=== PATIENT | female | born 1975 | race Caucasian/White ===

== ENCOUNTER 2016-06-28 10:31 | Emergency (ER) | payer SELFPAY ==
[~2016-06-28 10:31] MED LIST: /MOXI40TA; /PANT40TA; ACET50TA PO; ACET65TA; ALBU17IN INH; ALBU17IN2; ANUS2.5C2 TOP; ASPI325T; COMBVENT; DEPA250C; DEPA250T3; DIAZ10TA2; DIAZ5TAB; DIAZEPAM; DOCU10ELUD PO; DUONSOL; IBUP600T26 PO; KLON1TAB; MOM30SS PO; NICO21DI4; PERCOCET 5/325; PRED10TA2; PRED20TA; PROZ10CA; ROZEREM; SERO200T; SERO400T; SOMA; SOMA350T; SUDA30TA PO; TOPI100T; TOPI25TA2; TREXIMET; VENTAER; VICO5TAB
[2016-06-28] MEDS ORDERED: diphenhydrAMINE INJ 50MG/ML VIAL (J1200) As Ordered ONE (12:11)
[2016-06-28] MEDS ORDERED: METOCLOPRAMIDE INJ 10MG/2ML VIAL (J2765) As Ordered ONE (12:11)
[2016-06-28 12:26] LABS: BASO # 0.1 K/mm3 (0.0-0.2); BASO % 0.9 % (0.0-1.0); EOS # 0.4 K/mm3 (0.0-0.50); LARGE UNSTAINED CELL # 0.2 K/mm3 (0.0-0.4); LARGE UNSTAINED CELL % 1.4 % (0.0-4.0); LYMPH # 1.7 K/mm3 (1.5-4.5); LYMPH % 13.7 % (24.0-44.0); MEAN CORPUSCULAR HEMOGLOBIN 29.6 pg (27.0-33.0); MEAN CORPUSCULAR HGB CONC 32.3 g/dl (32.0-36.5); MEAN CORPUSCULAR VOLUME 91.6 fl (80.0-96.0); MONO # 0.6 K/mm3 (0.0-0.8); MONO % 4.9 % (0.0-5.0); NEUTROPHILS # 8.7 K/mm3 (1.8-7.7); NEUTROPHILS % 76.1 % (36.0-66.0); PLATELET COUNT, AUTOMATED 450 k/mm3 (150-450); RED CELL DISTRIBUTION WIDTH 13.6 % (11.5-14.5); WHITE BLOOD COUNT 11.4 K/mm3 (4.0-10.0)
[2016-06-28 13:12] LABS: ALBUMIN 3.6 GM/DL (3.2-5.2); ALBUMIN/GLOBULIN RATIO 0.97 (1.00-1.93); ALKALINE PHOSPHATASE 124 U/L (45-117); ALT/SGPT 26 U/L (12-78); AMYLASE 39 U/L (25-115); ANION GAP 9 MEQ/L (8-16); AST/SGOT 3 U/L (15-37); BILIRUBIN,DIRECT 0.1 MG/DL (0.0-0.2); BILIRUBIN,TOTAL 0.5 MG/DL (0.2-1.0); BLOOD UREA NITROGEN 6 MG/DL (7-18); CALCIUM LEVEL 9.1 MG/DL (8.5-10.1); CARBON DIOXIDE LEVEL 26 MEQ/L (21-32); CHLORIDE LEVEL 104 MEQ/L (98-107); CREATININE FOR GFR 0.62 MG/DL (0.55-1.02); GLOMERULAR FILTRATION RATE > 60.0 (>58); GLUCOSE, FASTING 115 MG/DL (70-105); SODIUM LEVEL 139 MEQ/L (136-145); TOTAL PROTEIN 7.3 GM/DL (6.4-8.2)
[2016-06-28] MEDS ORDERED: KETOROLAC 30 MG/ML VIAL (J1885) As Ordered ONE (13:12)
[2016-06-28] MEDS ORDERED: ISOVUE-370 76% 100ML VIAL (Q9967) As Ordered ONE (13:15)
--- NOTE | 2016-06-28 14:20 | REP ---
CT ABDOMEN AND PELVIS WITH IV CONTRAST ONLY: 06/28/2016 INDICATION: Appendicitis. COMPARISON:none The lung bases are clear bilaterally. 4 mm cyst present within the lateral aspect right dome of liver. The spleen, pancreas are normal. There has been a prior cholecystectomy. There is no significant biliary dilatation. The adrenal glands are normal. The kidneys are without hydronephrosis bilaterally. There is a small area of fatty infiltration within the medial lower pole right kidney of 6 mm diameter consistent with angiomyolipoma. The stomach is normal. Small bowel is without obstruction. The abdominal aorta is of normal course and caliber. There are no pathologically enlarged retroperitoneal nodes. The bladder is moderately distended with urine. The uterus and adnexa are within normal limits. The bladder is unremarkable. Mild mural thickening is seen within the left colon is most compatible with underdistention. There is moderate stool within the right colon and moderate air in the transverse colon. Although the appendix is not specifically visualized, no inflammatory changes are identified in the right lower quadrant. There is no free air or ascites. IMPRESSION: 1. Although the appendix is not specifically visualized, there are no visualized inflammatory changes within the right lower quadrant. If symptoms persist, may consider followup CT with IV and oral contrast. 2. Mural thickening seen throughout the left colon which can be secondary to underdistention/spasm or mild localized colitis. No free air or ascites. MTDD
--- NOTE | 2016-06-28 14:50 | EDDOCDS ---
Physician Documentation [facility] Name: Lovely Witt Age: 41 yrs Sex: Female : 1975 Arrival Date: 06/28/2016 Time: 10:31 Bed TR7 Private MD: Odell Sutton MD Disposition: 06/28/16 14:16 Discharged to Home/Self Care. Impression: Abdominal tenderness. - Condition is Stable. - Discharge Instructions: Abdominal Pain, Adult, Muscle Strain, [id number]. - Prescriptions for Robaxin- 750 750 mg Oral Tablet - take 1 tablet by ORAL route every 6 hours As needed; 40 tablet. etodolac 200 mg Oral Capsule - take 1 capsule by ORAL route 3 times per day; 30 capsule. - Medication Reconciliation, Local Pharmacy Hours form. - Follow up: Odell Sutton; When: Call to arrange an appointment; Reason: Further diagnostic work-up, Recheck today's complaints, Continuance of care. - Problem is new. - Symptoms have improved. Historical: - Allergies: NSAIDS (Upset stomach); - Home Meds: 1. multivitamin Oral cap daily - PMHx: none; - PSHx: ; Cholecystectomy; - Social history: Smoking status: Patient uses tobacco products, heavy tobacco smoker. No barriers to communication noted, The patient speaks fluent Uzbek, Speaks appropriately for age. - Family history: Not pertinent. - : The pt / caregiver states he / she is not on anticoagulants. Home medication list is obtained from the patient. - Exposure Risk Screening:: None identified. Vital Signs: 06/28 10:33 BP 162 / 95; Pulse 98; Resp 16; Temp 98.0(O); Pulse Ox 99% on R/A; Weight 54.43 kg / sew 120 lbs; Height 5 ft. 3 in. (160.02 cm); Pain 10/10; 13:52 BP 167 / 97 LA Supine (auto/reg); Pulse 87; Resp 22; Temp 96.5; Pulse Ox 96% ; Pain bnb 10/10; 10:33 Body Mass Index 21.26 (54.43 kg, 160.02 cm) sew MDM: 11:44 NS 0.9% 1000 ml IV at bolus once ordered. btw 11:44 IV Saline Lock ordered. btw 11:44 Undress patient appropriately for examination ordered. btw 11:44 Metoclopramide 20 mg IV at 80 mg/hr once over 15 mins ordered. btw 11:44 diphenhydrAMINE 50 mg IVP once ordered. btw 11:45 UCG by Nursing ordered. btw 11:45 Amylase Ordered. EDMS 11:45 Basic Metabolic Profile Ordered. EDMS 11:45 CBC with Diff Ordered. EDMS 11:45 Lipase Ordered. EDMS 11:45 Liver Profile Ordered. EDMS 11:45 Urinalysis Ordered. EDMS 11:45 Urine Culture Ordered. EDMS 11:45 CT ABD & PELVIS: IV Contrast Only Ordered. EDMS 11:46 NOTHING BY MOUTH+DIET ordered. EDMS 12:37 Financial registration complete. lg 12:37 [place] [place] [facility] [place] Agreement was scanned into [employer] and attached to record. lg 13:05 CBC with Diff Reviewed. btw 13:05 Urinalysis Reviewed. btw 13:07 ketorolac 30 mg IVP once ordered. btw 13:16 Basic Metabolic Profile Reviewed. btw 13:16 Liver Profile Reviewed. btw 13:16 Amylase Reviewed. btw 13:16 Lipase Reviewed. btw Point of Care Testing: Urine : 11:55 hCG Reading: Negative; Control Reading: Positive; ck1 Ranges: Administered Medications: 12:21 Drug: Metoclopramide 20 mg [metoclopramide 5 mg/mL injection solution] Route: IV; Rate: mk4 80 mg/hr; Infused Over: 15 mins; Site: right antecubital; 12:43 Follow up: IV Status: Completed infusion jjr 12:21 Drug: diphenhydrAMINE 50 mg [diphenhydramine 50 mg/mL injection solution (1 mL)] Route: mk4 IVP; Site: right antecubital; 12:22 Drug: NS 0.9% 1000 ml Route: IV; Rate: bolus; Site: right antecubital; mk4 13:16 Drug: ketorolac 30 mg [ketorolac 30 mg/mL (1 mL) injection solution (1 mL)] Route: IVP; jjr Site: right antecubital; Signatures: Dispatcher [employer] EDMS [place], Matt Reg lg Rigoberto Lyles PA PA btw Sherie Parham RN RN hs1 Marquita Hays RN RN mk4 Judy Jauregui RN jjr The chart was reviewed and I authenticate all verbal orders and agree with the evaluation and treatment provided.Attachments: 12:37 REPLACED BY [facility] Payment Agreement lg MTDD
--- NOTE | 2016-06-28 14:50 | EDDOCDS ---
Nurse's Notes [facility] Name: Lovely Witt Age: 41 yrs Sex: Female : 1975 Arrival Date: 06/28/2016 Time: 10:31 Bed TR7 Private MD: Odell Sutton MD Diagnosis: Abdominal tenderness Presentation: 06/28 10:41 Presenting complaint: Patient states: pain started underneath last rib on right side. hs1 Patient states now cannot lay down and pain is increased on back. Pt reports pain began 5 days ago. Risk factors: the patient reports no vaginal bleeding. Adult Sepsis Screening: The patient does not have new or worsening altered mentation. Patient's respiratory rate is less than 22. Systolic blood pressure is greater than 100. Patient has a qSOFA score of 0- Negative Sepsis Screen. Suicide/Homicide risk assessment- the patient denies having any suicidal and/or homicidal ideations and does not present with any other emotional, behavioral or mental health complaints. Status: Patient is not a food service coordinator or dependent. Transition of care: patient was not received from another setting of care. 10:41 Acuity: VIGNESH Level 4 hs1 10:41 Method Of Arrival: Walkin/Carried/Asstd hs1 11:52 Acuity level changed due to complexity of care. mlb1 11:52 Acuity: VIGNESH Level 3 mlb1 Triage Assessment: 10:43 General: Appears uncomfortable, Behavior is appropriate for age, cooperative. Pain: hs1 Location: right lateral posterior chest and right lateral anterior chest Pain currently is 8 out of 10 on a pain scale. Pt Declines HIV testing. Respiratory: Reports cough that is pain with cough. GI: Denies nausea. Historical: - Allergies: NSAIDS (Upset stomach); - Home Meds: 1. multivitamin Oral cap daily - PMHx: none; - PSHx: ; Cholecystectomy; - Social history: Smoking status: Patient uses tobacco products, heavy tobacco smoker. No barriers to communication noted, The patient speaks fluent Turkish, Speaks appropriately for age. - Family history: Not pertinent. - : The pt / caregiver states he / she is not on anticoagulants. Home medication list is obtained from the patient. - Exposure Risk Screening:: None identified. Screenin:55 Screening information is obtained from the patient. Fall risk: No risks identified. jjr Assistance ADL's: requires no assistance with activities of daily living. Abuse/DV Screen: The patient / caregiver reports he/she is: not in a situation that causes fear, pain or injury. Nutritional screening: No deficits noted. Advance Directives: There is no active DNR order. home support is adequate. Assessment: 12:00 General: Appears distressed, Behavior is agitated, rude. General: pt very agitated mk4 states " you arent going to stick anything in me without something for pain" i explained to her that she was seen by a medical provider and a plan was made for her care and that i would be giving someone something for pain through her IV , pt kicking and thrashing and screaming during IV start screaming " you've got one shot" . Neurological: No deficits noted. GI: Abdomen is non- distended Abd is tender to palpation X 4 quads. 12:43 General: Appears in no apparent distress, continues to report 8/10 pain to RUQ. jjr 13:54 General: Appears in no apparent distress, hacking cough, pt reports RUQ pain aggravated jjr with movement and cough. 14:21 General: Appears to be sleeping. mk4 14:45 General: Appears to be sleeping. pt sound asleep , needed physical shaking to awake for mk4 discharge instructions , mother at bedside and aware of instructions as well. Vital Signs: 10:33 BP 162 / 95; Pulse 98; Resp 16; Temp 98.0(O); Pulse Ox 99% on R/A; Weight 54.43 kg; sew Height 5 ft. 3 in. (160.02 cm); Pain 10/10; 13:52 BP 167 / 97 LA Supine (auto/reg); Pulse 87; Resp 22; Temp 96.5; Pulse Ox 96% ; Pain bnb 10/10; 10:33 Body Mass Index 21.26 (54.43 kg, 160.02 cm) [facility] [place] 10:33 Log In Time: June 28, 2016 at 10:32. [facility] [place]: 10:32 Patient visited by Jill Sweeney. sew 10:32 Patient moved to Waiting sew 10:33 Odell Sutton is Private Physician. sew 10:34 Patient visited by Jill Sweeney. sew 10:34 Patient moved to Pre RCE sew 10:42 Triage Initiated hs1 11:18 Patient moved to Triage 2 mlb1 11:18 Patient moved to Pre RCE mlb1 11:21 Patient moved to Triage 2 ead 11:22 Rigoberto Lyles PA is PHCP. btw 11:22 Jill Mcarthur MD is Attending Physician. btw 11:22 Patient visited by Rigoberto Lyles PA. btw 11:22 Patient moved to Pre RCE ead 11:28 Patient moved to Triage 1 jrd 11:51 Patient moved to I1 / M1 mlb1 11:53 Patient visited by Marquita Hays RN. mk4 11:55 Urinalysis Sent. ck1 11:55 Urine Culture Sent. ck1 12:37 [facility] [place] Payment Agreement was scanned into [employer] and attached to record. lg 12:44 Patient visited by Judy Jauregui RN. jjr 13:16 Patient visited by Marquita Hays RN. mk4 13:53 Patient visited by Fadumo Desouza PCA. bnb 13:56 Patient visited by Judy Jauregui RN. jjr 14:16 Odell Sutton is Referral Physician. btw 14:20 Patient visited by Fadumo Desouza PCA. bnb 14:33 CT ABD & PELVIS: IV Contrast Only Returned. EDMS 14:38 Patient moved to TR7 mk4 14:45 The patient / caregiver is instructed regarding the plan of care and ED course. mk4 14:45 Discontinued IV lock bleeding controlled, pressure dressing applied. mk4 14:48 Pt came to desk with blood running down the arm from IV site. IV site cleaned and fresh rs6 bandage placed. 14:48 No procedures done that require assistance. mk4 14:49 Patient visited by Ann Marie Strange PCA. rs6 Administered Medications: 12:21 Drug: Metoclopramide 20 mg [metoclopramide 5 mg/mL injection solution] Route: IV; Rate: mk4 80 mg/hr; Infused Over: 15 mins; Site: right antecubital; 12:43 Follow up: IV Status: Completed infusion jjr 12:21 Drug: diphenhydrAMINE 50 mg [diphenhydramine 50 mg/mL injection solution (1 mL)] Route: mk4 IVP; Site: right antecubital; 12:22 Drug: NS 0.9% 1000 ml Route: IV; Rate: bolus; Site: right antecubital; mk4 13:16 Drug: ketorolac 30 mg [ketorolac 30 mg/mL (1 mL) injection solution (1 mL)] Route: IVP; jjr Site: right antecubital; Point of Care Testing: Urine : 11:55 hCG Reading: Negative; Control Reading: Positive; ck1 Ranges: Order Results: Lab Order: Amylase; SPEC'M 06/28/16 12:19 Test: AMYLASE; Value: 39; Range: 25-115; Units: U/L; Status: F Lab Order: Basic Metabolic Profile; SPEC'M 06/28/16 12:19 Test: GLUCOSE, FASTING; Value: 115; Range: 70-105; Abnormal: Above high normal; Units: MG/DL; Status: F Test: BLOOD UREA NITROGEN; Value: 6; Range: 7-18; Abnormal: Below low normal; Units: MG/DL; Status: F Test: CREATININE FOR GFR; Value: 0.62; Range: 0.55-1.02; Units: MG/DL; Status: F Test: GLOMERULAR FILTRATION RATE; Value: > 60.0; Range: >58; Status: F Test: SODIUM LEVEL; Value: 139; Range: 136-145; Units: MEQ/L; Status: F Test: POTASSIUM SERUM; Value: 4.0; Range: 3.5-5.1; Units: MEQ/L; Status: F Test: CHLORIDE LEVEL; Value: 104; Range: 98-107; Units: MEQ/L; Status: F Test: CARBON DIOXIDE LEVEL; Value: 26; Range: 21-32; Units: MEQ/L; Status: F Test: ANION GAP; Value: 9; Range: 8-16; Units: MEQ/L; Status: F Test: CALCIUM LEVEL; Value: 9.1; Range: 8.5-10.1; Units: MG/DL; Status: F Test Note: ; Units are mL/min/1.73 m2 Chronic Kidney Disease Staging per NKF: Stage I & II GFR >=60 Normal to Mildly Decreased Stage III GFR 30-59 Moderately Decreased Stage IV GFR 15-29 Severely Decreased Stage V GFR <15 Very Little GFR Left ESRD GFR <15 on DORMITORY SUPERVISOR Lab Order: CBC with Diff; SPEC'M 06/28/16 12:19 Test: WHITE BLOOD COUNT; Value: 11.4; Range: 4.0-10.0; Abnormal: Above high normal; Units: K/mm3; Status: F Test: RED BLOOD COUNT; Value: 4.68; Range: 4.00-5.40; Units: M/mm3; Status: F Test: HEMOGLOBIN; Value: 13.9; Range: 12.0-16.0; Units: g/dl; Status: F Test: HEMATOCRIT; Value: 42.9; Range: 36.0-47.0; Units: %; Status: F Test: MEAN CORPUSCULAR VOLUME; Value: 91.6; Range: 80.0-96.0; Units: fl; Status: F Test: MEAN CORPUSCULAR HEMOGLOBIN; Value: 29.6; Range: 27.0-33.0; Units: pg; Status: F Test: MEAN CORPUSCULAR HGB CONC; Value: 32.3; Range: 32.0-36.5; Units: g/dl; Status: F Test: RED CELL DISTRIBUTION WIDTH; Value: 13.6; Range: 11.5-14.5; Units: %; Status: F Test: PLATELET COUNT, AUTOMATED; Value: 450; Range: 150-450; Units: k/mm3; Status: F Test: NEUTROPHILS %; Value: 76.1; Range: 36.0-66.0; Abnormal: Above high normal; Units: %; Status: F Test: LYMPH %; Value: 13.7; Range: 24.0-44.0; Abnormal: Below low normal; Units: %; Status: F Test: MONO %; Value: 4.9; Range: 0.0-5.0; Units: %; Status: F Test: EOS %; Value: 3.0; Range: 0.0-3.0; Units: %; Status: F Test: BASO %; Value: 0.9; Range: 0.0-1.0; Units: %; Status: F Test: LARGE UNSTAINED CELL %; Value: 1.4; Range: 0.0-4.0; Units: %; Status: F Test: NEUTROPHILS #; Value: 8.7; Range: 1.8-7.7; Abnormal: Above high normal; Units: K/mm3; Status: F Test: LYMPH #; Value: 1.7; Range: 1.5-4.5; Units: K/mm3; Status: F Test: MONO #; Value: 0.6; Range: 0.0-0.8; Units: K/mm3; Status: F Test: EOS #; Value: 0.4; Range: 0.0-0.50; Units: K/mm3; Status: F Test: BASO #; Value: 0.1; Range: 0.0-0.2; Units: K/mm3; Status: F Test: LARGE UNSTAINED CELL #; Value: 0.2; Range: 0.0-0.4; Units: K/mm3; Status: F Lab Order: Lipase; [facility]' 06/28/16 12:19 Test: LIPASE; Value: 126; Range: 73-393; Units: U/L; Status: F Lab Order: Liver Profile; [facility]' 06/28/16 12:19 Test: AST/SGOT; Value: 3; Range: 15-37; Abnormal: Below low normal; Units: U/L; Status: F Test: ALT/SGPT; Value: 26; Range: 12-78; Units: U/L; Status: F Test: ALKALINE PHOSPHATASE; Value: 124; Range: 45-117; Abnormal: Above high normal; Units: U/L; Status: F Test: BILIRUBIN,TOTAL; Value: 0.5; Range: 0.2-1.0; Units: MG/DL; Status: F Test: BILIRUBIN,DIRECT; Value: 0.1; Range: 0.0-0.2; Units: MG/DL; Status: F Test: TOTAL PROTEIN; Value: 7.3; Range: 6.4-8.2; Units: GM/DL; Status: F Test: ALBUMIN; Value: 3.6; Range: 3.2-5.2; Units: GM/DL; Status: F Test: ALBUMIN/GLOBULIN RATIO; Value: 0.97; Range: 1.00-1.93; Abnormal: Below low normal; Status: F Lab Order: Urinalysis; SPEC' 06/28/16 11:51 Test: APPEARANCE, URINE; Value: CLEAR; Range: CLEAR; Status: F Test: COLOR, URINE; Value: STRAW; Range: YELLOW; Status: F Test: PH,URINE; Value: 7.0; Range: 5.0-9.0; Units: UNITS; Status: F Test: SPECIFIC GRAVITY URINE AUTO; Value: 1.003; Range: 1.002-1.035; Status: F Test: PROTEIN, URINE AUTO; Value: NEGATIVE; Range: NEGATIVE; Units: mg/dL; Status: F Test: GLUCOSE, URINE (UA) AUTO; Value: NEGATIVE; Range: NEGATIVE; Units: mg/dL; Status: F Test: KETONE, URINE AUTO; Value: NEGATIVE; Range: NEGATIVE; Units: mg/dL; Status: F Test: UROBILINOGEN, URINE AUTO; Value: 0.2; Range: 0.0-2.0; Units: mg/dL; Status: F Test: BILIRUBIN, URINE AUTO; Value: NEGATIVE; Range: NEGATIVE; Status: F Test: NITRITE, URINE AUTO; Value: NEGATIVE; Range: NEGATIVE; Status: F Test: LEUKOCYTE ESTERASE, URINE AUTO; Value: 1+; Range: NEGATIVE; Abnormal: Above high normal; Status: F Test: BLOOD, URINE BLOOD; Value: NEGATIVE; Range: NEGATIVE; Status: F Test: WBC, URINE AUTO; Value: 2; Range: 0-3; Units: /HPF; Status: F Test: RBC, URINE AUTO; Value: 0; Range: 0-3; Units: /HPF; Status: F Test: BACTERIA, URINE AUTO; Value: NEGATIVE; Range: NEGATIVE; Status: F Test: SQUAMOUS EPITHELIAL CELL UR AU; Value: 0; Range: 0-6; Units: /HPF; Status: F Test: HYALINE CAST, URINE AUTO; Value: 0; Range: 0-1; Units: /LPF; Status: F Radiology Order: CT ABD & PELVIS: IV Contrast Only Test: CT ABD & PELVIS: IV Contrast Only REASON FOR EXAMINATION: Appendicitis; ; CT ABDOMEN AND PELVIS WITH IV CONTRAST ONLY: 06/28/2016; ; INDICATION: Appendicitis.; ; COMPARISON: ; ; The lung bases are clear bilaterally. 4 mm cyst present within the lateral; aspect right dome of liver. The spleen, pancreas are normal. There has been a; prior cholecystectomy. There is no significant biliary dilatation. The adrenal; glands are normal. The kidneys are without hydronephrosis bilaterally. There is a; small area of fatty infiltration within the medial lower pole right kidney of 6; mm diameter consistent with angiomyolipoma.; ; The stomach is normal. Small bowel is without obstruction. The abdominal aorta; is of normal course and caliber. There are no pathologically enlarged; retroperitoneal nodes.; ; The bladder is moderately distended with urine. The uterus and adnexa are within; normal limits. The bladder is unremarkable. Mild mural thickening is seen within; the left colon most compatible with underdistention. There is moderate stool; within the right colon and moderate air in the transverse colon. Although the; appendix is not specifically visualized, no inflammatory changes are identified; in the right lower quadrant. There is no free air or ascites.; ; IMPRESSION:; 1. Although the appendix is not specifically visualized, there are no visualized; inflammatory changes within the right lower quadrant. If symptoms persist, may; consider followup CT with IV and oral contrast.; ; 2. Mural thickening seen throughout the left colon which can be secondary to; underdistention/spasm or mild localized colitis. No free air or ascites.; ; ; ; ; Unreviewed; Outcome: 14:16 Discharge ordered by Provider. btw 14:48 Discharge Assessment: Patient awake, alert and oriented x 3. No cognitive and/or mk4 functional deficits noted. Patient verbalized understanding of disposition instructions. Patient awake and alert. Discharge Assessment: patient administered narcotics - no. The following High Risk Discharge criteria are identified: None. Condition: good Condition: stable. CT Study completed. Property sent home with patient. 14:50 Patient left the ED. mk4 Signatures: Dispatcher [employer] EDOK [place], Hemal Quinonez lg RN RN mlb1 Samreen JonesRN RN ck1 Judy Jauregui, RN RN Rigoberto Weir PA PA btw Sherie Parham RN RN hs1 Jill Sweeney Margaret, RN RN mk4 Kaitlynn Jacobs,RN RN Luis Martinez, PRODUCT EXAMINER PRODUCT EXAMINER jrd Ann Marie Strange, PRODUCT EXAMINER PRODUCT EXAMINER rs6 Fadumo Desouza, PRODUCT EXAMINER PRODUCT EXAMINER bnb MTDD
--- NOTE | 2016-06-30 15:51 | EDDOCDS ---
Physician Documentation [facility] Name: Lovely Witt Age: 41 yrs Sex: Female : 1975 Arrival Date: 06/28/2016 Time: 10:31 Bed TR7 Private MD: Odell Sutton MD Disposition: 06/28/16 14:16 Discharged to Home/Self Care. Impression: Abdominal tenderness. - Condition is Stable. - Discharge Instructions: Abdominal Pain, Adult, Muscle Strain, [id number]. - Prescriptions for Robaxin- 750 750 mg Oral Tablet - take 1 tablet by ORAL route every 6 hours As needed; 40 tablet. etodolac 200 mg Oral Capsule - take 1 capsule by ORAL route 3 times per day; 30 capsule. - Medication Reconciliation, Local Pharmacy Hours form. - Follow up: Odell Sutton; When: Call to arrange an appointment; Reason: Further diagnostic work-up, Recheck today's complaints, Continuance of care. - Problem is new. - Symptoms have improved. Historical: - Allergies: NSAIDS (Upset stomach); - Home Meds: 1. multivitamin Oral cap daily - PMHx: none; - PSHx: ; Cholecystectomy; - Social history: Smoking status: Patient uses tobacco products, heavy tobacco smoker. No barriers to communication noted, The patient speaks fluent Syriac, Speaks appropriately for age. - Family history: Not pertinent. - : The pt / caregiver states he / she is not on anticoagulants. Home medication list is obtained from the patient. - Exposure Risk Screening:: None identified. Vital Signs: 06/28 10:33 BP 162 / 95; Pulse 98; Resp 16; Temp 98.0(O); Pulse Ox 99% on R/A; Weight 54.43 kg / sew 120 lbs; Height 5 ft. 3 in. (160.02 cm); Pain 10/10; 13:52 BP 167 / 97 LA Supine (auto/reg); Pulse 87; Resp 22; Temp 96.5; Pulse Ox 96% ; Pain bnb 10/10; 10:33 Body Mass Index 21.26 (54.43 kg, 160.02 cm) sew MDM: 11:44 NS 0.9% 1000 ml IV at bolus once ordered. btw 11:44 IV Saline Lock ordered. btw 11:44 Undress patient appropriately for examination ordered. btw 11:44 Metoclopramide 20 mg IV at 80 mg/hr once over 15 mins ordered. btw 11:44 diphenhydrAMINE 50 mg IVP once ordered. btw 11:45 UCG by Nursing ordered. btw 11:45 Amylase Ordered. EDMS 11:45 Basic Metabolic Profile Ordered. EDMS 11:45 CBC with Diff Ordered. EDMS 11:45 Lipase Ordered. EDMS 11:45 Liver Profile Ordered. EDMS 11:45 Urinalysis Ordered. EDMS 11:45 Urine Culture Ordered. EDMS 11:45 CT ABD & PELVIS: IV Contrast Only Ordered. EDMS 11:46 NOTHING BY MOUTH+DIET ordered. EDMS 12:37 Financial registration complete. lg 12:37 [facility] [place] Payment Agreement was scanned into [employer] and attached to record. lg 13:05 CBC with Diff Reviewed. btw 13:05 Urinalysis Reviewed. btw 13:07 ketorolac 30 mg IVP once ordered. btw 13:16 Basic Metabolic Profile Reviewed. btw 13:16 Liver Profile Reviewed. btw 13:16 Amylase Reviewed. btw 13:16 Lipase Reviewed. btw 15:15 T-Sheet-- Draft Copy was scanned into [employer] and attached to record. Point of Care Testing: Urine : 11:55 hCG Reading: Negative; Control Reading: Positive; ck1 Ranges: Administered Medications: 12:21 Drug: Metoclopramide 20 mg [metoclopramide 5 mg/mL injection solution] Route: IV; Rate: mk4 80 mg/hr; Infused Over: 15 mins; Site: right antecubital; 12:43 Follow up: IV Status: Completed infusion jjr 12:21 Drug: diphenhydrAMINE 50 mg [diphenhydramine 50 mg/mL injection solution (1 mL)] Route: mk4 IVP; Site: right antecubital; 12:22 Drug: NS 0.9% 1000 ml Route: IV; Rate: bolus; Site: right antecubital; mk4 13:16 Drug: ketorolac 30 mg [ketorolac 30 mg/mL (1 mL) injection solution (1 mL)] Route: IVP; jjr Site: right antecubital; Signatures: Dispatcher [employer] EDMS Radha Wynn, Reg Reg [place], Reg Reg lg Rigoberto Lyles PA PA btw Sherie Parham RN RN hs1 Marquita Hays RN RN mk4 Judy Jauregui RN jjr The chart was reviewed and I authenticate all verbal orders and agree with the evaluation and treatment provided.Attachments: 12:37 [facility] Payment Agreement lg 15:15 T-Sheet-- Draft Copy gb Chart Complete MTDD
--- NOTE | 2016-06-30 15:51 | EDDOCDS ---
Nurse's Notes [facility] Name: Lovely Witt Age: 41 yrs Sex: Female : 1975 Arrival Date: 06/28/2016 Time: 10:31 Bed TR7 Private MD: Odell Sutton MD Diagnosis: Abdominal tenderness Presentation: 06/28 10:41 Presenting complaint: Patient states: pain started underneath last rib on right side. hs1 Patient states now cannot lay down and pain is increased on back. Pt reports pain began 5 days ago. Risk factors: the patient reports no vaginal bleeding. Adult Sepsis Screening: The patient does not have new or worsening altered mentation. Patient's respiratory rate is less than 22. Systolic blood pressure is greater than 100. Patient has a qSOFA score of 0- Negative Sepsis Screen. Suicide/Homicide risk assessment- the patient denies having any suicidal and/or homicidal ideations and does not present with any other emotional, behavioral or mental health complaints. Status: Patient is not a hr shared services consultant or dependent. Transition of care: patient was not received from another setting of care. 10:41 Acuity: VIGNESH Level 4 hs1 10:41 Method Of Arrival: Walkin/Carried/Asstd hs1 11:52 Acuity level changed due to complexity of care. mlb1 11:52 Acuity: VIGNESH Level 3 mlb1 Triage Assessment: 10:43 General: Appears uncomfortable, Behavior is appropriate for age, cooperative. Pain: hs1 Location: right lateral posterior chest and right lateral anterior chest Pain currently is 8 out of 10 on a pain scale. Pt Declines HIV testing. Respiratory: Reports cough that is pain with cough. GI: Denies nausea. Historical: - Allergies: NSAIDS (Upset stomach); - Home Meds: 1. multivitamin Oral cap daily - PMHx: none; - PSHx: ; Cholecystectomy; - Social history: Smoking status: Patient uses tobacco products, heavy tobacco smoker. No barriers to communication noted, The patient speaks fluent Azeri, Speaks appropriately for age. - Family history: Not pertinent. - : The pt / caregiver states he / she is not on anticoagulants. Home medication list is obtained from the patient. - Exposure Risk Screening:: None identified. Screenin:55 Screening information is obtained from the patient. Fall risk: No risks identified. jjr Assistance ADL's: requires no assistance with activities of daily living. Abuse/DV Screen: The patient / caregiver reports he/she is: not in a situation that causes fear, pain or injury. Nutritional screening: No deficits noted. Advance Directives: There is no active DNR order. home support is adequate. Assessment: 12:00 General: Appears distressed, Behavior is agitated, rude. General: pt very agitated mk4 states " you arent going to stick anything in me without something for pain" i explained to her that she was seen by a medical provider and a plan was made for her care and that i would be giving someone something for pain through her IV , pt kicking and thrashing and screaming during IV start screaming " you've got one shot" . Neurological: No deficits noted. GI: Abdomen is non- distended Abd is tender to palpation X 4 quads. 12:43 General: Appears in no apparent distress, continues to report 8/10 pain to RUQ. jjr 13:54 General: Appears in no apparent distress, hacking cough, pt reports RUQ pain aggravated jjr with movement and cough. 14:21 General: Appears to be sleeping. mk4 14:45 General: Appears to be sleeping. pt sound asleep , needed physical shaking to awake for mk4 discharge instructions , mother at bedside and aware of instructions as well. Vital Signs: 10:33 BP 162 / 95; Pulse 98; Resp 16; Temp 98.0(O); Pulse Ox 99% on R/A; Weight 54.43 kg; sew Height 5 ft. 3 in. (160.02 cm); Pain 10/10; 13:52 BP 167 / 97 LA Supine (auto/reg); Pulse 87; Resp 22; Temp 96.5; Pulse Ox 96% ; Pain bnb 10/10; 10:33 Body Mass Index 21.26 (54.43 kg, 160.02 cm) [facility] Vitals: 10:33 Log In Time: June 28, 2016 at 10:32. [facility] ED Course: 10:32 Patient visited by Jill Sweeney. sew 10:32 Patient moved to Waiting sew 10:33 Odell Sutton is Private Physician. sew 10:34 Patient visited by Jill Sweeney. sew 10:34 Patient moved to Pre RCE sew 10:42 Triage Initiated hs1 11:18 Patient moved to Triage 2 mlb1 11:18 Patient moved to Pre RCE mlb1 11:21 Patient moved to Triage 2 ead 11:22 Rigoberto Lyles PA is PHCP. btw 11:22 Jill Mcarthur MD is Attending Physician. btw 11:22 Patient visited by Rigoberto Lyles PA. btw 11:22 Patient moved to Pre RCE ead 11:28 Patient moved to Triage 1 jrd 11:51 Patient moved to I1 / M1 mlb1 11:53 Patient visited by Marquita Hays RN. mk4 11:55 Urinalysis Sent. ck1 11:55 Urine Culture Sent. ck1 12:37 [facility] Payment Agreement was scanned into [employer] and attached to record. lg 12:44 Patient visited by Judy Jauregui RN. jjr 13:16 Patient visited by Marquita Hays RN. mk4 13:53 Patient visited by Fadumo Desouza PCA. bnb 13:56 Patient visited by Judy Jauregui RN. jjr 14:16 Odell Sutton is Referral Physician. btw 14:20 Patient visited by Fadumo Desouza PCA. bnb 14:33 CT ABD & PELVIS: IV Contrast Only Returned. EDMS 14:38 Patient moved to TR7 mk4 14:45 The patient / caregiver is instructed regarding the plan of care and ED course. mk4 14:45 Discontinued IV lock bleeding controlled, pressure dressing applied. mk4 14:48 Pt came to desk with blood running down the arm from IV site. IV site cleaned and fresh rs6 bandage placed. 14:48 No procedures done that require assistance. mk4 14:49 Patient visited by Ann Marie Strange PCA. rs6 15:15 T-Sheet-- Draft Copy was scanned into [employer] and attached to record. gb Administered Medications: 12:21 Drug: Metoclopramide 20 mg [metoclopramide 5 mg/mL injection solution] Route: IV; Rate: mk4 80 mg/hr; Infused Over: 15 mins; Site: right antecubital; 12:43 Follow up: IV Status: Completed infusion jjr 12:21 Drug: diphenhydrAMINE 50 mg [diphenhydramine 50 mg/mL injection solution (1 mL)] Route: mk4 IVP; Site: right antecubital; 12:22 Drug: NS 0.9% 1000 ml Route: IV; Rate: bolus; Site: right antecubital; mk4 13:16 Drug: ketorolac 30 mg [ketorolac 30 mg/mL (1 mL) injection solution (1 mL)] Route: IVP; jjr Site: right antecubital; Point of Care Testing: Urine : 11:55 hCG Reading: Negative; Control Reading: Positive; ck1 Ranges: Order Results: Lab Order: Amylase; SPEC'M 06/28/16 12:19 Test: AMYLASE; Value: 39; Range: 25-115; Units: U/L; Status: F Lab Order: Basic Metabolic Profile; SPEC'M 06/28/16 12:19 Test: GLUCOSE, FASTING; Value: 115; Range: 70-105; Abnormal: Above high normal; Units: MG/DL; Status: F Test: BLOOD UREA NITROGEN; Value: 6; Range: 7-18; Abnormal: Below low normal; Units: MG/DL; Status: F Test: CREATININE FOR GFR; Value: 0.62; Range: 0.55-1.02; Units: MG/DL; Status: F Test: GLOMERULAR FILTRATION RATE; Value: > 60.0; Range: >58; Status: F Test: SODIUM LEVEL; Value: 139; Range: 136-145; Units: MEQ/L; Status: F Test: POTASSIUM SERUM; Value: 4.0; Range: 3.5-5.1; Units: MEQ/L; Status: F Test: CHLORIDE LEVEL; Value: 104; Range: 98-107; Units: MEQ/L; Status: F Test: CARBON DIOXIDE LEVEL; Value: 26; Range: 21-32; Units: MEQ/L; Status: F Test: ANION GAP; Value: 9; Range: 8-16; Units: MEQ/L; Status: F Test: CALCIUM LEVEL; Value: 9.1; Range: 8.5-10.1; Units: MG/DL; Status: F Test Note: ; Units are mL/min/1.73 m2 Chronic Kidney Disease Staging per NKF: Stage I & II GFR >=60 Normal to Mildly Decreased Stage III GFR 30-59 Moderately Decreased Stage IV GFR 15-29 Severely Decreased Stage V GFR <15 Very Little GFR Left ESRD GFR <15 on SAW MAN Lab Order: CBC with Diff; SPEC'M 06/28/16 12:19 Test: WHITE BLOOD COUNT; Value: 11.4; Range: 4.0-10.0; Abnormal: Above high normal; Units: K/mm3; Status: F Test: RED BLOOD COUNT; Value: 4.68; Range: 4.00-5.40; Units: M/mm3; Status: F Test: HEMOGLOBIN; Value: 13.9; Range: 12.0-16.0; Units: g/dl; Status: F Test: HEMATOCRIT; Value: 42.9; Range: 36.0-47.0; Units: %; Status: F Test: MEAN CORPUSCULAR VOLUME; Value: 91.6; Range: 80.0-96.0; Units: fl; Status: F Test: MEAN CORPUSCULAR HEMOGLOBIN; Value: 29.6; Range: 27.0-33.0; Units: pg; Status: F Test: MEAN CORPUSCULAR HGB CONC; Value: 32.3; Range: 32.0-36.5; Units: g/dl; Status: F Test: RED CELL DISTRIBUTION WIDTH; Value: 13.6; Range: 11.5-14.5; Units: %; Status: F Test: PLATELET COUNT, AUTOMATED; Value: 450; Range: 150-450; Units: k/mm3; Status: F Test: NEUTROPHILS %; Value: 76.1; Range: 36.0-66.0; Abnormal: Above high normal; Units: %; Status: F Test: LYMPH %; Value: 13.7; Range: 24.0-44.0; Abnormal: Below low normal; Units: %; Status: F Test: MONO %; Value: 4.9; Range: 0.0-5.0; Units: %; Status: F Test: EOS %; Value: 3.0; Range: 0.0-3.0; Units: %; Status: F Test: BASO %; Value: 0.9; Range: 0.0-1.0; Units: %; Status: F Test: LARGE UNSTAINED CELL %; Value: 1.4; Range: 0.0-4.0; Units: %; Status: F Test: NEUTROPHILS #; Value: 8.7; Range: 1.8-7.7; Abnormal: Above high normal; Units: K/mm3; Status: F Test: LYMPH #; Value: 1.7; Range: 1.5-4.5; Units: K/mm3; Status: F Test: MONO #; Value: 0.6; Range: 0.0-0.8; Units: K/mm3; Status: F Test: EOS #; Value: 0.4; Range: 0.0-0.50; Units: K/mm3; Status: F Test: BASO #; Value: 0.1; Range: 0.0-0.2; Units: K/mm3; Status: F Test: LARGE UNSTAINED CELL #; Value: 0.2; Range: 0.0-0.4; Units: K/mm3; Status: F Lab Order: Lipase; SPEC' 06/28/16 12:19 Test: LIPASE; Value: 126; Range: 73-393; Units: U/L; Status: F Lab Order: Liver Profile; SPEC'M 06/28/16 12:19 Test: AST/SGOT; Value: 3; Range: 15-37; Abnormal: Below low normal; Units: U/L; Status: F Test: ALT/SGPT; Value: 26; Range: 12-78; Units: U/L; Status: F Test: ALKALINE PHOSPHATASE; Value: 124; Range: 45-117; Abnormal: Above high normal; Units: U/L; Status: F Test: BILIRUBIN,TOTAL; Value: 0.5; Range: 0.2-1.0; Units: MG/DL; Status: F Test: BILIRUBIN,DIRECT; Value: 0.1; Range: 0.0-0.2; Units: MG/DL; Status: F Test: TOTAL PROTEIN; Value: 7.3; Range: 6.4-8.2; Units: GM/DL; Status: F Test: ALBUMIN; Value: 3.6; Range: 3.2-5.2; Units: GM/DL; Status: F Test: ALBUMIN/GLOBULIN RATIO; Value: 0.97; Range: 1.00-1.93; Abnormal: Below low normal; Status: F Lab Order: Urinalysis; SPEC' 06/28/16 11:51 Test: APPEARANCE, URINE; Value: CLEAR; Range: CLEAR; Status: F Test: COLOR, URINE; Value: STRAW; Range: YELLOW; Status: F Test: PH,URINE; Value: 7.0; Range: 5.0-9.0; Units: UNITS; Status: F Test: SPECIFIC GRAVITY URINE AUTO; Value: 1.003; Range: 1.002-1.035; Status: F Test: PROTEIN, URINE AUTO; Value: NEGATIVE; Range: NEGATIVE; Units: mg/dL; Status: F Test: GLUCOSE, URINE (UA) AUTO; Value: NEGATIVE; Range: NEGATIVE; Units: mg/dL; Status: F Test: KETONE, URINE AUTO; Value: NEGATIVE; Range: NEGATIVE; Units: mg/dL; Status: F Test: UROBILINOGEN, URINE AUTO; Value: 0.2; Range: 0.0-2.0; Units: mg/dL; Status: F Test: BILIRUBIN, URINE AUTO; Value: NEGATIVE; Range: NEGATIVE; Status: F Test: NITRITE, URINE AUTO; Value: NEGATIVE; Range: NEGATIVE; Status: F Test: LEUKOCYTE ESTERASE, URINE AUTO; Value: 1+; Range: NEGATIVE; Abnormal: Above high normal; Status: F Test: BLOOD, URINE BLOOD; Value: NEGATIVE; Range: NEGATIVE; Status: F Test: WBC, URINE AUTO; Value: 2; Range: 0-3; Units: /HPF; Status: F Test: RBC, URINE AUTO; Value: 0; Range: 0-3; Units: /HPF; Status: F Test: BACTERIA, URINE AUTO; Value: NEGATIVE; Range: NEGATIVE; Status: F Test: SQUAMOUS EPITHELIAL CELL UR AU; Value: 0; Range: 0-6; Units: /HPF; Status: F Test: HYALINE CAST, URINE AUTO; Value: 0; Range: 0-1; Units: /LPF; Status: F Lab Order: Urine Culture; SPEC'M 06/28/16 11:51 Test: URINE CULTURE; Value: URINE CULTURE RESULT SPECIMEN APPEARS CONTAMINATED; Status: F Radiology Order: CT ABD & PELVIS: IV Contrast Only Test: CT ABD & PELVIS: IV Contrast Only REASON FOR EXAMINATION: Appendicitis; ; CT ABDOMEN AND PELVIS WITH IV CONTRAST ONLY: 06/28/2016; ; INDICATION: Appendicitis.; ; COMPARISON:none; ; The lung bases are clear bilaterally. 4 mm cyst present within the lateral; aspect right dome of liver. The spleen, pancreas are normal. There has been a; prior cholecystectomy. There is no significant biliary dilatation. The adrenal; glands are normal. The kidneys are without hydronephrosis bilaterally. There is; a; small area of fatty infiltration within the medial lower pole right kidney of 6; mm diameter consistent with angiomyolipoma.; ; The stomach is normal. Small bowel is without obstruction. The abdominal aorta; is of normal course and caliber. There are no pathologically enlarged; retroperitoneal nodes.; ; The bladder is moderately distended with urine. The uterus and adnexa are within; normal limits. The bladder is unremarkable. Mild mural thickening is seen; within; the left colon is most compatible with underdistention. There is moderate stool; within the right colon and moderate air in the transverse colon. Although the; appendix is not specifically visualized, no inflammatory changes are identified; in the right lower quadrant. There is no free air or ascites.; ; IMPRESSION:; 1. Although the appendix is not specifically visualized, there are no; visualized; inflammatory changes within the right lower quadrant. If symptoms persist, may; consider followup CT with IV and oral contrast.; ; 2. Mural thickening seen throughout the left colon which can be secondary to; underdistention/spasm or mild localized colitis. No free air or ascites.; ; ; ; ; MTDD Outcome: 14:16 Discharge ordered by Provider. btw 14:48 Discharge Assessment: Patient awake, alert and oriented x 3. No cognitive and/or mk4 functional deficits noted. Patient verbalized understanding of disposition instructions. Patient awake and alert. Discharge Assessment: patient administered narcotics - no. The following High Risk Discharge criteria are identified: None. Condition: good Condition: stable. CT Study completed. Property sent home with patient. 14:50 Patient left the ED. mk4 Signatures: Dispatcher [employer] EDMS Radha Wynn, Reg Reg gb [place], Reg Reg lg Nima, Hemal Mcclure, RN RN mlb1 Samreen Jones RN RN ck1 Judy Jauregui RN RN Rigoberto Weir PA PA btw Sherie Parham RN RN hs1 Jill Sweeney Margaret RN RN mk4 Kaitlynn Jacobs,RN RN hong Pantoja, Luis, THREAD SEPARATOR THREAD SEPARATOR jrd Alexandr, Ann Marie, THREAD SEPARATOR THREAD SEPARATOR rs6 Fadumo Desouza, THREAD SEPARATOR THREAD SEPARATOR bnb Chart Complete MTDD
--- NOTE | 2016-06-30 15:51 | EDDOCDS ---
Physician Documentation [facility] Name: Lovely Witt Age: 41 yrs Sex: Female : 1975 Arrival Date: 06/28/2016 Time: 10:31 Bed TR7 Private MD: Odell Sutton MD Disposition: 06/28/16 14:16 Discharged to Home/Self Care. Impression: Abdominal tenderness. - Condition is Stable. - Discharge Instructions: Abdominal Pain, Adult, Muscle Strain, [id number]. - Prescriptions for Robaxin- 750 750 mg Oral Tablet - take 1 tablet by ORAL route every 6 hours As needed; 40 tablet. etodolac 200 mg Oral Capsule - take 1 capsule by ORAL route 3 times per day; 30 capsule. - Medication Reconciliation, Local Pharmacy Hours form. - Follow up: Odell Sutton; When: Call to arrange an appointment; Reason: Further diagnostic work-up, Recheck today's complaints, Continuance of care. - Problem is new. - Symptoms have improved. Historical: - Allergies: NSAIDS (Upset stomach); - Home Meds: 1. multivitamin Oral cap daily - PMHx: none; - PSHx: ; Cholecystectomy; - Social history: Smoking status: Patient uses tobacco products, heavy tobacco smoker. No barriers to communication noted, The patient speaks fluent Macedonian, Speaks appropriately for age. - Family history: Not pertinent. - : The pt / caregiver states he / she is not on anticoagulants. Home medication list is obtained from the patient. - Exposure Risk Screening:: None identified. Vital Signs: 06/28 10:33 BP 162 / 95; Pulse 98; Resp 16; Temp 98.0(O); Pulse Ox 99% on R/A; Weight 54.43 kg / sew 120 lbs; Height 5 ft. 3 in. (160.02 cm); Pain 10/10; 13:52 BP 167 / 97 LA Supine (auto/reg); Pulse 87; Resp 22; Temp 96.5; Pulse Ox 96% ; Pain bnb 10/10; 10:33 Body Mass Index 21.26 (54.43 kg, 160.02 cm) sew MDM: 11:44 NS 0.9% 1000 ml IV at bolus once ordered. btw 11:44 IV Saline Lock ordered. btw 11:44 Undress patient appropriately for examination ordered. btw 11:44 Metoclopramide 20 mg IV at 80 mg/hr once over 15 mins ordered. btw 11:44 diphenhydrAMINE 50 mg IVP once ordered. btw 11:45 UCG by Nursing ordered. btw 11:45 Amylase Ordered. EDMS 11:45 Basic Metabolic Profile Ordered. EDMS 11:45 CBC with Diff Ordered. EDMS 11:45 Lipase Ordered. EDMS 11:45 Liver Profile Ordered. EDMS 11:45 Urinalysis Ordered. EDMS 11:45 Urine Culture Ordered. EDMS 11:45 CT ABD & PELVIS: IV Contrast Only Ordered. EDMS 11:46 NOTHING BY MOUTH+DIET ordered. EDMS 12:37 Financial registration complete. lg 12:37 [facility] Payment Agreement was scanned into [employer] and attached to record. lg 13:05 CBC with Diff Reviewed. btw 13:05 Urinalysis Reviewed. btw 13:07 ketorolac 30 mg IVP once ordered. btw 13:16 Basic Metabolic Profile Reviewed. btw 13:16 Liver Profile Reviewed. btw 13:16 Amylase Reviewed. btw 13:16 Lipase Reviewed. btw 15:15 T-Sheet-- Draft Copy was scanned into [employer] and attached to record. Point of Care Testing: Urine : 11:55 hCG Reading: Negative; Control Reading: Positive; ck1 Ranges: Administered Medications: 12:21 Drug: Metoclopramide 20 mg [metoclopramide 5 mg/mL injection solution] Route: IV; Rate: mk4 80 mg/hr; Infused Over: 15 mins; Site: right antecubital; 12:43 Follow up: IV Status: Completed infusion jjr 12:21 Drug: diphenhydrAMINE 50 mg [diphenhydramine 50 mg/mL injection solution (1 mL)] Route: mk4 IVP; Site: right antecubital; 12:22 Drug: NS 0.9% 1000 ml Route: IV; Rate: bolus; Site: right antecubital; mk4 13:16 Drug: ketorolac 30 mg [ketorolac 30 mg/mL (1 mL) injection solution (1 mL)] Route: IVP; jjr Site: right antecubital; Signatures: Dispatcher [employer] EDMS Radha Wynn, Reg Reg [place], Reg Reg lg Rigoberto Lyles PA PA btw Sherie Parham RN RN hs1 Marquita Hays RN RN mk4 Judy Jauregui RN jjr The chart was reviewed and I authenticate all verbal orders and agree with the evaluation and treatment provided.Attachments: 12:37 [facility] Payment Agreement lg 15:15 T-Sheet-- Draft Copy gb Chart Complete MTDD
== END 2016-06-28 14:50 | disposition home or self-care (01) ==
LOC: M ED 10:31
DX: R10.821 Right upper quadrant rebound abdominal tenderness (principal); R10.823 Right lower quadrant rebound abdominal tenderness; Z88.6 Allergy status to analgesic agent; F17.210 Nicotine dependence, cigarettes, uncomplicated
CPT/HCPCS: 36415; 74177; 80048; 80076; 81001; 81025; 82150; 83690; 85025; 87086; 96365; 96375; 99284; J1200; J1885; J2765; Q9967

== ENCOUNTER 2022-04-24 02:25 | Emergency (ER) | payer MEDICAID, OTHER ==
[~2022-04-24] VITALS: Ht 160 cm; Wt 69.8 kg
[~2022-04-24 02:25] MED LIST changes: -/MOXI40TA; -/PANT40TA; -ACET50TA PO; +AVEL1TAB2; -DOCU10ELUD PO; +DOCU5LIQ PO; +MAPA500T17 PO; +PROT1TAB2
[2022-04-24 07:47] VITALS: BP 211/117
[2022-04-24] MEDS ORDERED: AMPICILLIN SOD/SULBACTAM SOD 3 GM in D5W MINI-BAG PLUS 100 ML IV ONE (08:30)
[2022-04-24] MEDS ORDERED: MORPHINE 4 MG/ML 1ML VIAL/SYRINGE IV ONE (08:40)
[2022-04-24] MEDS ORDERED: NS 1,000 ML IV ONE (08:40)
== END 2022-04-24 09:16 | disposition left against medical advice (07) ==
LOC: M ED 02:25
DX: K04.7 Periapical abscess without sinus (principal); G50.1 Atypical facial pain; Z53.9 Procedure and treatment not carried out, unspecified reason; F17.200 Nicotine dependence, unspecified, uncomplicated; Z79.899 Other long term (current) drug therapy; Z88.6 Allergy status to analgesic agent

== ENCOUNTER 2024-10-09 13:12 | Inpatient (IN) | payer OTHER ==
[~2024-10-09] VITALS: Ht 162.6 cm; Wt 59.7 kg
[2024-10-09] MEDS: ACETAMINOPHEN *IV* 1,000 MG in IV 1 EA IV ONE (16:15)
[2024-10-09] MEDS: LORazepam 1 MG TAB PO STA (16:15)
[2024-10-09 16:17] LABS: BASO # 0.1 10^3/uL (0.0-0.2); BASO % 0.4 % (0.0-1.0); EOS # 0.1 10^3/uL (0.0-0.5); EOS % 0.3 % (0.0-3.0); HEMATOCRIT 51.9 % (36.0-47.0); LYMPH # 2.1 10^3/uL (1.5-5.0); LYMPH % 12.6 % (24.0-44.0); MEAN CORPUSCULAR HEMOGLOBIN 28.3 pg (27.0-33.0); MEAN CORPUSCULAR HGB CONC 33.1 g/dl (32.0-36.5); MEAN CORPUSCULAR VOLUME 85.5 fl (80.0-96.0); MONO # 0.9 10^3/uL (0.0-0.8); MONO % 5.7 % (2.0-8.0); NEUTROPHILS # 13.1 10^3/uL (1.5-8.5); NEUTROPHILS % 80.5 % (36.0-66.0); PLATELET COUNT, AUTOMATED 382 10^3/uL (150-450); RED BLOOD COUNT 6.07 10^6/uL (4.00-5.40); WHITE BLOOD COUNT 16.3 10^3/uL (4.0-10.0)
[2024-10-09 16:21] LABS: HEMOGLOBIN 17.2 g/dl (12.0-15.5)
[2024-10-09 16:51] LABS: ETHYL ALCOHOL (ETHANOL) 0.004 % (0.000-0.010); LIPASE 43 U/L (12-53)
[2024-10-09 16:53] LABS: ALBUMIN 4.3 G/DL (3.2-5.2); ALKALINE PHOSPHATASE 92 U/L (35-104); ALT/SGPT 30 U/L (7.0-40); AST/SGOT 23 U/L (<34); BILIRUBIN,DIRECT 0.5 MG/DL (<0.4); BLOOD UREA NITROGEN 12 MG/DL (9-23); CALCIUM LEVEL 9.9 MG/DL (8.5-10.1); CARBON DIOXIDE LEVEL 24 MMOL/L (20-31); CHLORIDE LEVEL 100 MMOL/L (98-107); CK-MB VALUE MASS 4.6 NG/ML (<3.6); CREATININE FOR GFR 0.78 MG/DL (0.55-1.30); GLOMERULAR FILTRATION RATE > 90.0 (>58); GLUCOSE, FASTING 107 MG/DL (60-100); POTASSIUM SERUM 4.7 MMOL/L (3.5-5.1); SALICYLATE LEVEL < 3.0 MG/DL (<30); SODIUM LEVEL 133 MMOL/L (136-145); TOTAL PROTEIN 7.6 G/DL (5.7-8.2)
[2024-10-09 16:56] LABS: FREE T4 1.16 NG/DL (0.89-1.76)
[2024-10-09 17:07] LABS: C REACTIVE PROTEIN QUANTITATIV < 0.50 MG/DL (<1.0)
[2024-10-09 17:15] LABS: PROCALCITONIN 0.04 ng/ml
[2024-10-09 17:16] LABS: KETONE, URINE AUTO RFX NEGATIVE (NEGATIVE); LEUKOCYTE ESTERASE UR AUTO RFX NEGATIVE (NEGATIVE); NITRITE, URINE AUTO RFX NEGATIVE (NEGATIVE); RBC, URINE AUTO RFX 2 /HPF (0-3); SQUAM EPITHELIAL CELL UR AURFX 12 /HPF (0-6); WBC, URINE AUTO RFX 0 /HPF (0-3)
[2024-10-09 17:19] LABS: CPK CREATINE PHOSPHOKINASE 126 U/L (34-145); MB/CK RELATIVE INDEX 3.65 (< OR =4)
[2024-10-09 17:20] LABS: ERYTHROCYTE SEDIMENTATION RATE 18 mm/hr (0-20)
[2024-10-09] MEDS: CARVedilol 6.25 MG TAB PO ONE (17:43)
[2024-10-09] MEDS: NIFEdipine 30MG XL TAB PO STA (17:44)
[2024-10-09 17:49] LABS: CK-MB VALUE MASS 3.4 NG/ML (<3.6)
[2024-10-09 17:56] LABS: MB/CK RELATIVE INDEX 2.76 (< OR =4)
[2024-10-09 18:00] LABS: BARBITURATES URINE NEGATIVE (NEGATIVE); BENZODIAZEPINES URINE NEGATIVE (NEGATIVE); CANNABINOIDS URINE NEGATIVE (NEGATIVE); COCAINE METABOLITE URINE NEGATIVE (NEGATIVE); METHADONE URINE NEGATIVE (NEGATIVE); OPIATES URINE NEGATIVE (NEGATIVE); PHENCYCLIDINE URINE NEGATIVE (NEGATIVE)
[2024-10-09 18:05] LABS: AMPHETAMINES LEVEL URINE POSITIVE (NEGATIVE)
[2024-10-09] MEDS: cloNIDine HCL 0.1 MG/24 HR PATCH TOP SCH (18:16)
[2024-10-09] MEDS ORDERED: CLON0.5T2 PO (18:29)
[2024-10-09] MEDS ORDERED: VITA-158 PO (18:29)
[2024-10-09] MEDS ORDERED: SERO50TA PO (18:29)
[2024-10-09] MEDS ORDERED: BENA25CA4 PO (18:29)
[2024-10-09] MEDS ORDERED: LISI20TA33 PO (18:29)
[2024-10-09] MEDS ORDERED: ACET1TAB55 PO (18:29)
[2024-10-09] MEDS ORDERED: HOME MED LIST COMPLETE! XX SCH (18:30)
[2024-10-09] MEDS ORDERED: IPRATROPIUM 0.5MG/ALBUTEROL 2.5MG INH SOL UD 3ML NEB PRN (19:20)
[2024-10-09] MEDS: atenoloL 50 MG TAB PO ONE (19:35)
[2024-10-09] MEDS: ACETAMINOPHEN 500 MG TAB PO ONE (19:36)
[2024-10-09] MEDS: FUROSEMIDE 40MG/4ML VIAL IV ONE (20:38)
[2024-10-09] MEDS: hydrALAZINE 20MG/ML 1ML VIAL IV ONE (20:38)
[2024-10-09] MEDS: LABETALOL 100MG/20ML VIAL IV STA (20:39)
[2024-10-09] MEDS: diazePAM 10MG/2ML SYRINGE IV ONE (20:39)
[2024-10-09 21:10] VITALS: BP 117/63; TEMP 98.7; O2SAT 97
[2024-10-09] MEDS: RIZATRIPTAN BENZOATE 10 MG TAB PO ONE (22:41)
[2024-10-09] MEDS: TOPIRAMATE (TopAMAX) 100 MG TAB PO SCH (22:42)
[2024-10-09] MEDS: clonazePAM 1 MG TAB PO SCH (22:42)
[2024-10-09] MEDS: VALPROIC ACID 250MG CAP PO SCH (22:42)
[2024-10-09] MEDS: NICOTINE 21MG/24HR 1 EA TRANSDERMAL TD SCH (22:43)
[2024-10-09 23:17] VITALS: BP 144/76; TEMP 97.2; O2SAT 98
[2024-10-10] VITALS (8 sets, daily range): BP systolic 128–188; BP diastolic 62–110; TEMP 97.8–99.7; O2SAT 97–98
[2024-10-10] MEDS ORDERED: LABETALOL 100MG/20ML VIAL IV SCH
[2024-10-10] MEDS ORDERED: hydrALAZINE 20MG/ML 1ML VIAL IV PRN
[2024-10-10] MEDS: cloNIDine 0.1MG TABLET PO SCH (00:01)
[2024-10-10] MEDS: hydrALAZINE 20MG/ML 1ML VIAL IV SCH (01:46)
[2024-10-10] MEDS: LABETALOL 100MG/20ML VIAL IV SCH (02:48)
[2024-10-10 06:47] LABS: THYROID STIMULATING HORMONE 0.692 uIU/ML (0.55-4.78)
[2024-10-10 06:48] LABS: CHOLESTEROL RISK RATIO 2.45 (<5); CREATININE FOR GFR 0.82 MG/DL (0.55-1.30); FREE T4 1.21 NG/DL (0.89-1.76); GLOMERULAR FILTRATION RATE 87.6 (>58); HDL CHOLESTEROL 50.1 MG/DL (>40); LDL CHOLESTEROL 55.7 MG/DL (<100); NON-HDL-C 72.9 MG/DL; POTASSIUM SERUM 3.6 MMOL/L (3.5-5.1)
[2024-10-10] MEDS: diazePAM 10MG/2ML SYRINGE IV ONE (07:04)
[2024-10-10] MEDS: LABETALOL 100MG TAB PO SCH (08:46)
[2024-10-10] MEDS: LOSARTAN 50MG TABLET PO ONE (08:46)
[2024-10-10] MEDS ORDERED: atenoloL 50 MG TAB PO SCH (09:00)
[2024-10-10] MEDS: **hydrALAZINE** 50 MG TAB PO SCH (13:00)
[2024-10-10] MEDS ORDERED: ATEN50TA2 PO (13:29)
[2024-10-10] MEDS ORDERED: LOSA100T46 PO (13:31)
[2024-10-10] MEDS ORDERED: HYDR100T26 PO (13:34)
[2024-10-10] MEDS ORDERED: MINO2.5T PO (13:36)
[2024-10-10] MEDS ORDERED: LABE100T6 PO (13:37)
== END 2024-10-10 14:32 | DRG 199 ==
LOC: M ED 13:12 → M ED INP 17:45 → M PCU 21:21
PROVIDERS: ADMIT General Practice; ATTEND General Practice
DX: I16.0 Hypertensive urgency (principal); G92.8 Other toxic encephalopathy; E87.1 Hypo-osmolality and hyponatremia; R94.31 Abnormal electrocardiogram [ECG] [EKG]; J45.909 Unspecified asthma, uncomplicated; F15.13 Other stimulant abuse with withdrawal; F17.200 Nicotine dependence, unspecified, uncomplicated; R51.9 Headache, unspecified; Z88.6 Allergy status to analgesic agent; F41.9 Anxiety disorder, unspecified; F32.A Depression, unspecified; G89.29 Other chronic pain; M54.9 Dorsalgia, unspecified; Z79.899 Other long term (current) drug therapy

== ENCOUNTER 2024-10-10 16:44 | Observation (INO) | payer OTHER ==
[~2024-10-10] VITALS: Ht 160 cm; Wt 59.6 kg
[~2024-10-10 16:44] MED LIST changes: +ACET1TAB55 PO; +ATEN50TA2 PO; +BENA25CA4 PO; +CLON0.5T2 PO; +HYDR100T26 PO; +LABE100T6 PO; +LISI20TA33 PO; +LOSA100T46 PO; +MINO2.5T PO; +SERO50TA PO; +VITA-158 PO
[2024-10-10] MEDS: NS 500 ML IV ONE (17:10)
[2024-10-10 18:20] LABS: BASO # 0.1 10^3/uL (0.0-0.2); BASO % 0.6 % (0.0-1.0); EOS # 0.1 10^3/uL (0.0-0.5); EOS % 0.5 % (0.0-3.0); HEMATOCRIT 54.6 % (36.0-47.0); HEMOGLOBIN 18.1 g/dl (12.0-15.5); LYMPH # 2.2 10^3/uL (1.5-5.0); LYMPH % 12.8 % (24.0-44.0); MEAN CORPUSCULAR HEMOGLOBIN 28.8 pg (27.0-33.0); MEAN CORPUSCULAR HGB CONC 33.2 g/dl (32.0-36.5); MEAN CORPUSCULAR VOLUME 86.8 fl (80.0-96.0); NEUTROPHILS # 13.5 10^3/uL (1.5-8.5); NEUTROPHILS % 79.8 % (36.0-66.0); PLATELET COUNT, AUTOMATED 440 10^3/uL (150-450); RED BLOOD COUNT 6.29 10^6/uL (4.00-5.40); WHITE BLOOD COUNT 16.9 10^3/uL (4.0-10.0)
[2024-10-10 18:47] LABS: SALICYLATE LEVEL < 3.0 MG/DL (<30)
[2024-10-10 18:48] LABS: CPK CREATINE PHOSPHOKINASE 50 U/L (34-145)
[2024-10-10 18:50] LABS: ETHYL ALCOHOL (ETHANOL) < 0.003 % (0.000-0.010)
[2024-10-10 18:54] LABS: ALBUMIN 4.6 G/DL (3.2-5.2); ALKALINE PHOSPHATASE 105 U/L (35-104); ALT/SGPT 25 U/L (7.0-40); AST/SGOT 8 U/L (<34); BILIRUBIN,DIRECT 0.6 MG/DL (<0.4); BILIRUBIN,TOTAL 1.8 MG/DL (0.3-1.2); BLOOD UREA NITROGEN 23 MG/DL (9-23); CALCIUM LEVEL 10.1 MG/DL (8.5-10.1); CARBON DIOXIDE LEVEL 24 MMOL/L (20-31); CHLORIDE LEVEL 95 MMOL/L (98-107); CK-MB VALUE MASS 1.2 NG/ML (<3.6); CREATININE FOR GFR 1.15 MG/DL (0.55-1.30); GLOMERULAR FILTRATION RATE 58.4 (>58); GLUCOSE, FASTING 89 MG/DL (60-100); POTASSIUM SERUM 3.8 MMOL/L (3.5-5.1); SODIUM LEVEL 132 MMOL/L (136-145); TOTAL PROTEIN 8.4 G/DL (5.7-8.2)
[2024-10-10] MEDS: MAALOX 30 ML SUSP *UDC PO ONE (19:00)
[2024-10-10] MEDS ORDERED: ISOVUE-370 76% 100ML VIAL As Ordered ONE (19:06)
[2024-10-10 19:30] LABS: MB/CK RELATIVE INDEX 1.85 (< OR =4)
[2024-10-10 23:00] LABS: BARBITURATES URINE NEGATIVE (NEGATIVE); CANNABINOIDS URINE NEGATIVE (NEGATIVE); COCAINE METABOLITE URINE NEGATIVE (NEGATIVE); METHADONE URINE NEGATIVE (NEGATIVE); OPIATES URINE NEGATIVE (NEGATIVE); PHENCYCLIDINE URINE NEGATIVE (NEGATIVE)
[2024-10-10] MEDS ORDERED: HOME MED LIST COMPLETE! XX SCH (23:05)
[2024-10-10 23:12] LABS: AMPHETAMINES LEVEL URINE POSITIVE (NEGATIVE); BENZODIAZEPINES URINE POSITIVE (NEGATIVE)
[2024-10-10] MEDS: UNRESOLVED CLARIFICATION ENTRY XX STA (23:20)
[2024-10-11] VITALS (7 sets, daily range): BP systolic 124–176; BP diastolic 72–94; TEMP 97.2–98.1; O2SAT 96–99
[2024-10-11] MEDS: ACETAMINOPHEN 325 MG TAB PO PRN (00:19)
[2024-10-11] MEDS: QUEtiapine FUMARATE 50MG TAB PO SCH (00:19)
[2024-10-11] MEDS: MAALOX 30 ML SUSP *UDC PO PRN (06:00)
[2024-10-11 06:18] LABS: MEAN CORPUSCULAR HEMOGLOBIN 28.4 pg (27.0-33.0); MEAN CORPUSCULAR HGB CONC 33.4 g/dl (32.0-36.5); MEAN CORPUSCULAR VOLUME 85.1 fl (80.0-96.0); PLATELET COUNT, AUTOMATED 359 10^3/uL (150-450); RED BLOOD COUNT 5.52 10^6/uL (4.00-5.40)
[2024-10-11 06:19] LABS: HEMOGLOBIN 15.7 g/dl (12.0-15.5)
[2024-10-11 06:30] LABS: ALBUMIN 3.5 G/DL (3.2-5.2); BILIRUBIN,TOTAL 1.1 MG/DL (0.3-1.2); CALCIUM LEVEL 9.2 MG/DL (8.5-10.1); CREATININE FOR GFR 0.87 MG/DL (0.55-1.30); GLOMERULAR FILTRATION RATE 81.6 (>58); MAGNESIUM LEVEL 1.9 MG/DL (1.8-2.4); POTASSIUM SERUM 3.7 MMOL/L (3.5-5.1); TOTAL PROTEIN 6.5 G/DL (5.7-8.2)
[2024-10-11] MEDS ORDERED: PILL CUTTER 1 EACH XX PRN (07:30)
[2024-10-11] MEDS ORDERED: LABETALOL 100MG TAB PO SCH (09:00)
[2024-10-11] MEDS: ENOXAPARIN 40MG/0.4ML SYRINGE (J1650 PER 10MG) SC SCH (09:00)
[2024-10-11] MEDS ORDERED: AUGMENTIN 875 MG TAB PO SCH (09:00)
[2024-10-11] MEDS: CALCIUM CARBONATE 500 MG CHEW U/D PO ONE (10:04)
[2024-10-11] MEDS: MOM 30ML SUSPENSION UDC PO ONE (10:05)
[2024-10-11] MEDS: AMPICILLIN SOD/SULBACTAM SOD 3 GM in DEXTROSE 5% (D5W) MINI-BAG PLU 100 ML IV SCH (10:18)
[2024-10-11] MEDS: diphenhydrAMINE 25MG CAP PO SCH (11:03)
[2024-10-11] MEDS: LABETALOL 100MG TAB PO SCH ×2 (11:03→21:16)
[2024-10-11] MEDS: SUCRALFATE 1 GM TAB PO SCH (11:03)
[2024-10-11] MEDS: ASCORBIC ACID 500 MG TAB PO SCH (11:03)
[2024-10-11] MEDS: PANTOPRAZOLE 40MG TAB (PROTONIX) PO SCH (11:03)
[2024-10-11] MEDS: clonazePAM 0.5 MG TAB PO SCH (11:04)
[2024-10-11] MEDS: DOCUSATE SODIUM 100MG CAPSULE PO SCH (11:04)
[2024-10-11] MEDS: ONDANSETRON 4MG 2ML VIAL IV PRN (15:23)
[2024-10-11] MEDS ORDERED: RIVAROXABAN 10MG TAB (XARELTO) PO SCH (18:00)
[2024-10-12 04:00] VITALS: BP 157/82; TEMP 97.7; O2SAT 98
[2024-10-12 07:34] VITALS: BP 150/84; TEMP 97.9; O2SAT 97
[2024-10-12 08:30] LABS: BASO # 0.1 10^3/uL (0.0-0.2); BASO % 0.3 % (0.0-1.0); EOS # 0.1 10^3/uL (0.0-0.5); EOS % 0.5 % (0.0-3.0); HEMATOCRIT 44.7 % (36.0-47.0); HEMOGLOBIN 14.8 g/dl (12.0-15.5); LYMPH # 1.8 10^3/uL (1.5-5.0); LYMPH % 11.8 % (24.0-44.0); MEAN CORPUSCULAR HGB CONC 33.1 g/dl (32.0-36.5); MEAN CORPUSCULAR VOLUME 87.5 fl (80.0-96.0); MONO # 1.4 10^3/uL (0.0-0.8); PLATELET COUNT, AUTOMATED 309 10^3/uL (150-450); RED BLOOD COUNT 5.11 10^6/uL (4.00-5.40); WHITE BLOOD COUNT 15.4 10^3/uL (4.0-10.0)
[2024-10-12 11:35] VITALS: BP 158/88; TEMP 97.9; O2SAT 97
[2024-10-12 16:31] VITALS: BP 172/88; TEMP 97.9; O2SAT 97
[2024-10-12] MEDS: MOM 30ML SUSPENSION UDC PO PRN (16:56)
[2024-10-12 19:53] VITALS: BP 150/90; TEMP 97.7; O2SAT 98
[2024-10-13] VITALS (7 sets, daily range): BP systolic 149–190; BP diastolic 82–103; TEMP 97.5–97.9; O2SAT 96–98
[2024-10-13] MEDS ORDERED: SUCR1TA PO (12:42)
[2024-10-13] MEDS ORDERED: PANT40TA29 PO (12:42)
[2024-10-13] MEDS ORDERED: AUGM12TA11 PO (12:50)
[2024-10-13] MEDS ORDERED: MILKSUS3 PO (12:53)
[2024-10-13] MEDS ORDERED: MINO10TA PO (14:28)
[2024-10-13] MEDS ORDERED: LABE100T6 PO (14:49)
[2024-10-13 15:41] LABS: BASO # 0.1 10^3/uL (0.0-0.2); BASO % 0.9 % (0.0-1.0); EOS # 0.1 10^3/uL (0.0-0.5); EOS % 1.3 % (0.0-3.0); HEMOGLOBIN 14.4 g/dl (12.0-15.5); LYMPH # 1.6 10^3/uL (1.5-5.0); LYMPH % 15.2 % (24.0-44.0); MEAN CORPUSCULAR HEMOGLOBIN 28.9 pg (27.0-33.0); MEAN CORPUSCULAR HGB CONC 33.5 g/dl (32.0-36.5); MEAN CORPUSCULAR VOLUME 86.2 fl (80.0-96.0); MONO # 0.9 10^3/uL (0.0-0.8); MONO % 8.4 % (2.0-8.0); NEUTROPHILS # 7.7 10^3/uL (1.5-8.5); NEUTROPHILS % 73.9 % (36.0-66.0); PLATELET COUNT, AUTOMATED 308 10^3/uL (150-450); RED BLOOD COUNT 4.99 10^6/uL (4.00-5.40); WHITE BLOOD COUNT 10.4 10^3/uL (4.0-10.0)
== END 2024-10-13 15:35 ==
LOC: M ED 16:44 → EDBD 16:44 → M ED INP 16:45 → M MSPAV 10-11 00:11
PROVIDERS: ADMIT Student in an Organized Health Care Education/Training Program; ATTEND Student in an Organized Health Care Education/Training Program
DX: I95.2 Hypotension due to drugs (principal); T46.5X5A Adverse effect of other antihypertensive drugs, initial encounter; I16.0 Hypertensive urgency; K20.90 Esophagitis, unspecified without bleeding; K21.9 Gastro-esophageal reflux disease without esophagitis; R91.1 Solitary pulmonary nodule; K04.7 Periapical abscess without sinus; D72.829 Elevated white blood cell count, unspecified; F19.10 Other psychoactive substance abuse, uncomplicated; I10 Essential (primary) hypertension; R51.9 Headache, unspecified; R56.9 Unspecified convulsions; J45.909 Unspecified asthma, uncomplicated; M54.9 Dorsalgia, unspecified; G89.29 Other chronic pain; F41.9 Anxiety disorder, unspecified; F32.A Depression, unspecified; Z90.49 Acquired absence of other specified parts of digestive tract; Z98.891 History of uterine scar from previous surgery; F17.200 Nicotine dependence, unspecified, uncomplicated; F15.10 Other stimulant abuse, uncomplicated; Z79.899 Other long term (current) drug therapy; Z88.8 Allergy status to other drugs, medicaments and biological substances
CPT/HCPCS: 36415; 70450; 71275; 74177; 80048; 80053; 80076; 80143; 80307; 82077; 82550; 82553; 83605; 83735; 84484; 85025; 85027; 87507; 93005; 96365; 96374; 96375; 96376; 99285; J0295; J2405; Q9967; S0139